=== PATIENT | female | born 1960 | race Caucasian/White ===

== ENCOUNTER 2017-03-29 14:53 | Emergency (ER) | payer MEDICAID ==
[~2017-03-29] VITALS: Ht 172.7 cm; Wt 73.0 kg
[~2017-03-29 14:53] MED LIST: ATEN50TA; BUTA-251; DIAZ5TAB4 PO; HYDR-3927; SERT-112 PO; TRAZ-132 PO
[2017-03-29] MEDS ORDERED: SODIUM CHLORIDE 0.9% 1,000 ML IV ONE (15:28)
[2017-03-29] MEDS ORDERED: KETOROLAC 30MG/ML VIAL IV STA (15:28)
[2017-03-29] MEDS ORDERED: LORAZEPAM 0.5MG TABLET PO ONE (15:30)
[2017-03-29 15:49] LABS: EOSINOPHILS % 2.1 % (0.0-5.0); HEMATOCRIT. 35.9 % (36.0-48.0); HEMOGLOBIN. 12.3 g/dL (12.0-16.0); LYMPHOCYTES % 24.9 % (20.0-50.0); MEAN CORPUSCULAR HEMOGLOBIN 31.3 pg (28.0-32.0); MEAN CORPUSCULAR VOLUME 91.5 fL (81.0-99.0); MEAN PLATELET VOLUME 6.8 fl (7.4-10.4); MONOCYTES % 9.9 % (2.0-8.0); NEUTROPHILS % 62.1 % (40.0-76.0); PLATELET 271 x1000/uL (130-400); RED BLOOD CELL COUNT 3.93 mill/uL (4.2-5.4); RED CELL DISTRIBUTION WIDTH 14.2 % (11.6-14.6)
[2017-03-29 15:51] LABS: PROTHROMBIN TIME 10.2 sec
[2017-03-29 15:53] LABS: CARBON DIOXIDE 27 mEq/L (21-32); CHLORIDE 104 mEq/L (98-107)
[2017-03-29 15:59] LABS: TROPONIN I < 0.02 ng/mL (0.00-0.04)
[2017-03-29] MEDS ORDERED: BUTALBITAL/ACETAMINOPHEN/CAFFEINE 50/325/40MG TABLET PO ONE (18:00)
[2017-03-29 18:04] VITALS: BP 134/83
== END 2017-03-29 20:47 | disposition home or self-care (01) ==
LOC: ER 16:56
DX: R07.89 Other chest pain (principal); I10 Essential (primary) hypertension; F41.9 Anxiety disorder, unspecified; Z90.710 Acquired absence of both cervix and uterus
CPT/HCPCS: 36415; 71010; 80053; 84484; 85025; 85610; 93005; 96361; 96374; 99285; J1885; J7030; Z7610

== ENCOUNTER 2017-06-13 14:18 | Emergency (ER) | payer MEDICAID, OTHER ==
[~2017-06-13] VITALS: Ht 172.7 cm; Wt 73.0 kg
[2017-06-13] MEDS ORDERED: KETOROLAC 60MG/2ML VIAL IM ONE (20:45)
[2017-06-13 21:20] VITALS: BP 169/97
== END 2017-06-14 01:15 | disposition home or self-care (01) ==
LOC: ER 14:18
DX: S83.92XA Sprain of unspecified site of left knee, initial encounter (principal); Y92.090 Kitchen in other non-institutional residence as the place of occurrence of the external cause; W01.0XXA Fall on same level from slipping, tripping and stumbling without subsequent striking against object, initial encounter; F41.9 Anxiety disorder, unspecified; M19.90 Unspecified osteoarthritis, unspecified site; Y93.G1 Activity, food preparation and clean up; I10 Essential (primary) hypertension; Z90.710 Acquired absence of both cervix and uterus; Z98.890 Other specified postprocedural states
CPT/HCPCS: 73562; 96372; 99284; J1885; L1830; Z7610

== ENCOUNTER 2017-06-26 08:59 | Inpatient (IN) | payer MEDICAID ==
[~2017-06-26] VITALS: Ht 172.7 cm; Wt 72.6 kg
[2017-06-26] MEDS ORDERED: NITROGLYCERIN OINT 1GM/INCH UDPKT TD STA (09:15)
[2017-06-26] MEDS ORDERED: ASPIRIN 81MG TABLET PO STA (09:15)
[2017-06-26] MEDS ORDERED: ONDANSETRON HCL 4MG/2ML VIAL IV ONE (09:15)
[2017-06-26] MEDS ORDERED: MORPHINE SULFATE 4 MG/ML CPJ (NOT FOR IM USE) IV ONE (09:15)
[2017-06-26 09:45] LABS: BASOPHILS % 1.1 % (0.0-2.0); EOSINOPHILS % 3.1 % (0.0-5.0); HEMATOCRIT. 34.6 % (36.0-48.0); HEMOGLOBIN. 11.8 g/dL (12.0-16.0); LYMPHOCYTES % 30.9 % (20.0-50.0); MEAN CORPUSCULAR HEMOGLOBIN 30.7 pg (28.0-32.0); MEAN CORPUSCULAR VOLUME 89.7 fL (81.0-99.0); MEAN PLATELET VOLUME 6.7 fl (7.4-10.4); MONOCYTES % 9.5 % (2.0-8.0); NEUTROPHILS % 55.4 % (40.0-76.0); PLATELET 236 x1000/uL (130-400); RED BLOOD CELL COUNT 3.85 mill/uL (4.2-5.4)
[2017-06-26 09:53] LABS: PARTIAL THROMBOPLASTIN TIME 26.1 sec (23.4-31.0); PROTHROMBIN TIME 10.1 sec (9.4-11.6)
[2017-06-26 10:01] LABS: CARBON DIOXIDE 29 mEq/L (21-32); CHLORIDE 108 mEq/L (98-107); TROPONIN I < 0.02 ng/mL (0.00-0.04)
[2017-06-26 11:30] VITALS: BP 116/76
[2017-06-26 12:00] VITALS: BP 116/76
[2017-06-26] MEDS ORDERED: GABA-531 PO (12:04)
[2017-06-26] MEDS ORDERED: FIORICET PO (12:06)
[2017-06-26] MEDS: SERTRALINE HCL 100MG TABLET PO SCH (12:15)
[2017-06-26] MEDS: HYDROCODONE/ACETAMINOPHEN 5/325MG TABLET PO PRN ×2 (12:34→19:56)
[2017-06-26] MEDS: CODEINE/BUTALBIT/ACETAMINOPHEN/CAFF 30/50/325/40MG CAPSULE PO PRN (15:10)
[2017-06-26 15:31] LABS: CREATINE KINASE 53 IU/L (26-192); CREATINE KINASE MB FRACTION 0.5 ng/mL (0.5-3.6); TROPONIN I < 0.02 ng/mL (0.00-0.04)
[2017-06-26 15:46] VITALS: BP 97/63
[2017-06-26] MEDS ORDERED: ATENOLOL 50 MG TABLET PO SCH (17:00)
[2017-06-26 17:05] VITALS: BP 119/78
[2017-06-26 20:00] VITALS: BP 127/73
[2017-06-26] MEDS: METOPROLOL TARTRATE 50MG TABLET PO SCH (21:00)
[2017-06-26] MEDS: DIAZEPAM 5 MG TABLET PO PRN (21:49)
[2017-06-27] VITALS: BP 121/88
[2017-06-27] MEDS: HYDROCODONE/ACETAMINOPHEN 5/325MG TABLET PO PRN ×2 (01:34→15:05)
[2017-06-27 02:41] LABS: *AMPHETAMINES SCREEN URINE NEGATIVE (NEGATIVE); *BARBITURATES SCREEN URINE PRESUMTIVE POSITIVE (NEGATIVE); *BENZODIAZEPINES SCREEN URINE PRESUMTIVE POSITIVE (NEGATIVE); *COCAINE SCREEN URINE NEGATIVE (NEGATIVE); CANNABINOID URINE SCREEN NEGATIVE (NEGATIVE); METHADONE URINE SCREEN NEGATIVE (NEGATIVE); OPIATES URINE SCREEN PRESUMTIVE POSITIVE (NEGATIVE); PHENCYCLIDINE URINE SCREEN NEGATIVE (NEGATIVE)
[2017-06-27 04:00] VITALS: BP 130/76
[2017-06-27 07:50] VITALS: BP 155/82
[2017-06-27] MEDS: SERTRALINE HCL 100MG TABLET PO SCH (08:34)
[2017-06-27] MEDS: DIAZEPAM 5 MG TABLET PO PRN ×2 (08:35→15:01)
[2017-06-27] MEDS: METOPROLOL TARTRATE 50MG TABLET PO SCH (08:35)
[2017-06-27] MEDS ORDERED: ASPIRIN 81MG TABLET PO SCH (09:00)
[2017-06-27] MEDS ORDERED: GABAPENTIN 300MG CAPSULE PO SCH (09:00)
[2017-06-27] MEDS: CODEINE/BUTALBIT/ACETAMINOPHEN/CAFF 30/50/325/40MG CAPSULE PO PRN ×2 (09:54→15:47)
[2017-06-27] MEDS ORDERED: TRIAMTERENE/HYDROCHLOROTHIAZID 75/50MG TABLET PO SCH (11:15)
[2017-06-27 12:00] VITALS: BP 128/71
[2017-06-27 12:41] LABS: CREATINE KINASE 46 IU/L (26-192); CREATINE KINASE MB FRACTION 0.6 ng/mL (0.5-3.6); TROPONIN I < 0.02 ng/mL (0.00-0.04)
[2017-06-27 15:59] VITALS: BP 130/77
[2017-06-27 16:02] VITALS: BP 130/77
== END 2017-06-27 17:59 | disposition home or self-care (01) | DRG 203 ==
LOC: ER 08:59 → 8WST 09:34 → EDBEDREQ 09:34 → ENRESERV 09:36 → CANRESERV 09:36 → ENRESERV 11:07
PROVIDERS: ADMIT Internal Medicine; ATTEND Internal Medicine
DX: M94.0 Chondrocostal junction syndrome [Tietze] (principal); I10 Essential (primary) hypertension; R00.1 Bradycardia, unspecified; F41.9 Anxiety disorder, unspecified; D64.9 Anemia, unspecified; G43.909 Migraine, unspecified, not intractable, without status migrainosus; T44.7X5A Adverse effect of beta-adrenoreceptor antagonists, initial encounter; Z82.49 Family history of ischemic heart disease and other diseases of the circulatory system; Z90.710 Acquired absence of both cervix and uterus; Z79.899 Other long term (current) drug therapy; Y92.89 Other specified places as the place of occurrence of the external cause
CPT/HCPCS: 36415; 71010; 76705; 80053; 80305; 82550; 82553; 83690; 83880; 84443; 84484; 85025; 85610; 85730; 93005; 93306; 93970; 96374; 96375; 99291; J2270; J2405

== ENCOUNTER 2017-09-22 12:37 | Emergency (ER) | payer MEDICAID ==
[~2017-09-22] VITALS: Ht 172.7 cm; Wt 73.0 kg
[~2017-09-22 12:37] MED LIST changes: +FIORICET PO; +GABA-531 PO
[2017-09-22] MEDS ORDERED: LORAZEPAM 0.5MG TABLET PO ONE (14:00)
[2017-09-22] MEDS ORDERED: BUTALBITAL/ACETAMINOPHEN/CAFFEINE 50/325/40MG TABLET PO ONE (14:00)
[2017-09-22 14:09] LABS: BASOPHILS % 1.2 % (0.0-2.0); EOSINOPHILS % 2.4 % (0.0-5.0); HEMATOCRIT. 36.8 % (36.0-48.0); HEMOGLOBIN. 12.4 g/dL (12.0-16.0); LYMPHOCYTES % 33.3 % (20.0-50.0); MEAN CORPUSCULAR HEMOGLOBIN 30.4 pg (28.0-32.0); MEAN CORPUSCULAR VOLUME 90.1 fL (81.0-99.0); MEAN PLATELET VOLUME 6.9 fl (7.4-10.4); NEUTROPHILS % 54.1 % (40.0-76.0); PLATELET 233 x1000/uL (130-400); RED BLOOD CELL COUNT 4.08 mill/uL (4.2-5.4); RED CELL DISTRIBUTION WIDTH 13.6 % (11.6-14.6)
[2017-09-22 14:13] LABS: PROTHROMBIN TIME 10.1 sec (9.4-11.6)
[2017-09-22 14:21] LABS: CARBON DIOXIDE 27 mEq/L (21-32); CHLORIDE 106 mEq/L (98-107); TROPONIN I < 0.02 ng/mL (0.00-0.04)
[2017-09-22 15:19] VITALS: BP 127/83
== END 2017-09-22 15:31 | disposition home or self-care (01) ==
LOC: ER 13:26
DX: R07.9 Chest pain, unspecified (principal); I10 Essential (primary) hypertension; R51 Headache; F41.9 Anxiety disorder, unspecified; Z90.710 Acquired absence of both cervix and uterus; Z79.899 Other long term (current) drug therapy
CPT/HCPCS: 36415; 71010; 80053; 84484; 85025; 85610; 99285

== ENCOUNTER 2017-11-25 14:52 | Emergency (ER) | payer MEDICAID ==
[~2017-11-25] VITALS: Ht 172.7 cm; Wt 73.0 kg
[2017-11-25 17:57] LABS: BASOPHILS % 0.7 % (0.0-2.0); EOSINOPHILS % 2.2 % (0.0-5.0); HEMATOCRIT. 34.4 % (36.0-48.0); HEMOGLOBIN. 11.5 g/dL (12.0-16.0); LYMPHOCYTES % 29.3 % (20.0-50.0); MEAN CORPUSCULAR VOLUME 89.6 fL (81.0-99.0); MEAN PLATELET VOLUME 6.9 fl (7.4-10.4); MONOCYTES % 8.3 % (2.0-8.0); NEUTROPHILS % 59.5 % (40.0-76.0); PLATELET 238 x1000/uL (130-400); RED BLOOD CELL COUNT 3.84 mill/uL (4.2-5.4); RED CELL DISTRIBUTION WIDTH 14.3 % (11.6-14.6)
[2017-11-25 17:59] LABS: PROTHROMBIN TIME 10.2 sec (9.4-11.6)
[2017-11-25 18:11] LABS: CARBON DIOXIDE 30 mEq/L (21-32); CHLORIDE 105 mEq/L (98-107); TROPONIN I < 0.02 ng/mL (0.00-0.04)
[2017-11-25 19:30] VITALS: BP 100/64
== END 2017-11-25 20:00 | disposition home or self-care (01) ==
LOC: ER 15:13
DX: G89.18 Other acute postprocedural pain (principal); R07.89 Other chest pain; R21 Rash and other nonspecific skin eruption; R51 Headache; I10 Essential (primary) hypertension; Z98.890 Other specified postprocedural states; Z87.891 Personal history of nicotine dependence; Z90.710 Acquired absence of both cervix and uterus; Z91.040 Latex allergy status
CPT/HCPCS: 36415; 71045; 80053; 84484; 85025; 85610; 93005; 99285

== ENCOUNTER 2018-05-05 13:46 | Emergency (ER) | payer MEDICAID ==
[~2018-05-05] VITALS: Ht 172.7 cm; Wt 78.0 kg
[2018-05-05] MEDS ORDERED: BUTALBITAL/ACETAMINOPHEN/CAFFEINE 50/325/40MG TABLET PO ONE (15:00)
[2018-05-05 15:05] LABS: CLARITY URINE CLEAR (CLEAR); COLOR URINE YELLOW (YELLOW); KETONES URINE NEGATIVE (NEGATIVE); LEUKOCYTE ESTERASE URINE NEGATIVE (NEGATIVE); NITRITE URINE NEGATIVE (NEGATIVE); OCCULT BLOOD URINE NEGATIVE (NEGATIVE); PROTEIN URINE NEGATIVE (NEGATIVE); SPECIFIC GRAVITY URINE 1.003 (1.005-1.030); UROBILINOGEN URINE 0.2 E.U./dL (0.2-1.0)
[2018-05-05 15:06] LABS: HEMATOCRIT. 36.5 % (36.0-48.0); HEMOGLOBIN. 12.4 g/dL (12.0-16.0); LYMPHOCYTES % 29.6 % (20.0-50.0); MEAN CORPUSCULAR HEMOGLOBIN 31.3 pg (28.0-32.0); MEAN CORPUSCULAR VOLUME 92.6 fL (81.0-99.0); MEAN PLATELET VOLUME 7.1 fl (7.4-10.4); MONOCYTES % 8.9 % (2.0-8.0); NEUTROPHILS % 58.5 % (40.0-76.0); PLATELET 254 x1000/uL (130-400); RED BLOOD CELL COUNT 3.94 mill/uL (4.2-5.4); RED CELL DISTRIBUTION WIDTH 14.8 % (11.6-14.6)
[2018-05-05 15:11] LABS: CHLORIDE 105 mEq/L (98-107)
[2018-05-05] MEDS ORDERED: DIAZEPAM 2 MG TABLET PO ONE ×2 (15:30→16:00)
[2018-05-05 16:45] VITALS: BP 130/75
== END 2018-05-05 16:46 | disposition home or self-care (01) ==
LOC: ER 15:31
DX: F41.9 Anxiety disorder, unspecified (principal); I10 Essential (primary) hypertension; R07.9 Chest pain, unspecified; R51 Headache
CPT/HCPCS: 36415; 71045; 80053; 81003; 84484; 85025; 93005; 99285

== ENCOUNTER 2018-08-30 15:52 | Emergency (ER) | payer MEDICAID ==
[~2018-08-30] VITALS: Ht 172.7 cm; Wt 75.0 kg
[~2018-08-30 15:52] MED LIST changes: +ASPI-1158 PO; -ATEN50TA; -BUTA-251; +BUTA1CAP45 PO; -FIORICET PO; -HYDR-3927; -SERT-112 PO; +SERT50TA12 PO; -TRAZ-132 PO; +TRAZ-213 PO
[2018-08-30] MEDS ORDERED: KETOROLAC 30MG/ML VIAL IV STA (16:25)
[2018-08-30] MEDS ORDERED: CEFTRIAXONE 1 G PREMIX 50 ML IV ONE (16:30)
[2018-08-30] MEDS ORDERED: BUTALBITAL/ACETAMINOPHEN/CAFFEINE 50/325/40MG TABLET PO ONE (16:30)
[2018-08-30] MEDS ORDERED: DIAZEPAM 5 MG TABLET PO ONE (16:30)
[2018-08-30] MEDS ORDERED: ONDANSETRON HCL 4MG/2ML INJ IV ONE (17:00)
[2018-08-30 17:32] LABS: BASOPHILS % 1.2 % (0.0-2.0); EOSINOPHILS % 1.9 % (0.0-5.0); HEMATOCRIT. 40.7 % (36.0-48.0); HEMOGLOBIN. 13.7 g/dL (12.0-16.0); LYMPHOCYTES % 21.9 % (20.0-50.0); MEAN CORPUSCULAR HEMOGLOBIN 31.7 pg (28.0-32.0); MEAN PLATELET VOLUME 7.1 fl (7.4-10.4); MONOCYTES % 7.5 % (2.0-8.0); NEUTROPHILS % 67.5 % (40.0-76.0); PLATELET 328 x1000/uL (130-400); RED BLOOD CELL COUNT 4.33 mill/uL (4.2-5.4); RED CELL DISTRIBUTION WIDTH 14.7 % (11.6-14.6)
[2018-08-30 17:38] LABS: CHLORIDE 100 mEq/L (98-107)
[2018-08-30 18:27] LABS: CLARITY URINE CLEAR (CLEAR); COLOR URINE YELLOW (YELLOW); KETONES URINE NEGATIVE (NEGATIVE); LEUKOCYTE ESTERASE URINE 1+ (NEGATIVE); NITRITE URINE NEGATIVE (NEGATIVE); OCCULT BLOOD URINE NEGATIVE (NEGATIVE); PROTEIN URINE NEGATIVE (NEGATIVE); SPECIFIC GRAVITY URINE 1.005 (1.005-1.030); UROBILINOGEN URINE 0.2 E.U./dL (0.2-1.0)
[2018-08-30 19:01] VITALS: BP 163/73
== END 2018-08-30 19:30 | disposition home or self-care (01) ==
LOC: ER 18:31
DX: R51 Headache (principal); R07.9 Chest pain, unspecified; N39.0 Urinary tract infection, site not specified; F41.9 Anxiety disorder, unspecified; I10 Essential (primary) hypertension; R03.0 Elevated blood-pressure reading, without diagnosis of hypertension; Z76.0 Encounter for issue of repeat prescription; Z79.82 Long term (current) use of aspirin; Z91.040 Latex allergy status; Z90.710 Acquired absence of both cervix and uterus
CPT/HCPCS: 36415; 71045; 80053; 81003; 83690; 83880; 84484; 85025; 87077; 87086; 93005; 96365; 96375; 99285; J0696; J1885; J2405

== ENCOUNTER 2018-12-12 14:35 | Inpatient (IN) | payer MEDICAID ==
[~2018-12-12] VITALS: Ht 172.7 cm; Wt 71.9 kg
[2018-12-12] MEDS ORDERED: LORAZEPAM 1MG TABLET PO ONE (23:15)
[2018-12-13] MEDS ORDERED: MORPHINE SULFATE 4 MG/ML CPJ (NOT FOR IM USE) IV STA (00:02)
[2018-12-13 00:12] LABS: BASOPHILS % 0.9 % (0.0-2.0); EOSINOPHILS % 1.7 % (0.0-5.0); HEMOGLOBIN. 13.4 g/dL (12.0-16.0); MEAN CORPUSCULAR HEMOGLOBIN 31.6 pg (28.0-32.0); MEAN CORPUSCULAR VOLUME 94.4 fL (81.0-99.0); MEAN PLATELET VOLUME 7.3 fl (7.4-10.4); MONOCYTES % 8.9 % (2.0-8.0); NEUTROPHILS % 50.5 % (40.0-76.0); PLATELET 277 x1000/uL (130-400); RED BLOOD CELL COUNT 4.24 mill/uL (4.2-5.4); RED CELL DISTRIBUTION WIDTH 14.1 % (11.6-14.6)
[2018-12-13 00:16] LABS: CHLORIDE 103 mEq/L (98-107)
[2018-12-13] MEDS ORDERED: LORAZEPAM 1MG TABLET PO ONE (02:30)
[2018-12-13] MEDS ORDERED: ACETAMINOPHEN 500MG TABLET PO ONE (06:00)
[2018-12-13] MEDS ORDERED: DOCUSATE SODIUM 100MG CAPSULE PO PRN (08:00)
[2018-12-13] MEDS ORDERED: ONDANSETRON HCL 4MG/2ML INJ IV PRN (08:00)
[2018-12-13] MEDS ORDERED: CLONIDINE 0.1MG TABLET PO PRN (08:00)
[2018-12-13] MEDS ORDERED: ACETAMINOPHEN 325MG TABLET PO PRN (08:00)
[2018-12-13] MEDS ORDERED: IPRATROPIUM/ALBUTEROL 0.5-3(2.5)MG/3ML NEB INH PRN (08:00)
[2018-12-13] MEDS ORDERED: GUAIFENESIN 200MG/10ML SUGAR FREE UDC PO PRN (08:00)
[2018-12-13] MEDS ORDERED: MAGNESIUM/ALUMINUM HYDROXIDE/SIMETHICONE 30ML UDC PO PRN (08:00)
[2018-12-13] MEDS: DIAZEPAM 5 MG TABLET PO SCH ×2 (08:28→20:07)
[2018-12-13] MEDS: HYDROCODONE/ACETAMINOPHEN 5/325MG TABLET PO PRN ×2 (10:21→22:57)
[2018-12-13] MEDS ORDERED: MORPHINE SULFATE 4 MG/ML CPJ (NOT FOR IM USE) IV PRN (15:30)
[2018-12-13] MEDS: ATENOLOL 100 MG TABLET PO SCH ×2 (15:31→21:00)
[2018-12-13 16:43] LABS: CREATINE KINASE 64 IU/L (26-192)
[2018-12-13 19:28] LABS: CLARITY URINE CLOUDY (CLEAR); COLOR URINE YELLOW (YELLOW); KETONES URINE 1+ (NEGATIVE); LEUKOCYTE ESTERASE URINE 3+ (NEGATIVE); NITRITE URINE POSITIVE (NEGATIVE); OCCULT BLOOD URINE 1+ (NEGATIVE); PROTEIN URINE NEGATIVE (NEGATIVE); SPECIFIC GRAVITY URINE 1.007 (1.005-1.030); UROBILINOGEN URINE 0.2 E.U./dL (0.2-1.0)
[2018-12-13 21:15] VITALS: BP 147/74
[2018-12-13] MEDS ORDERED: ENOXAPARIN 40MG/0.4ML SYR SUBCUT SCH (21:30)
[2018-12-13] MEDS: DIPHENHYDRAMINE 50MG/ML VIAL IV PRN (21:58)
[2018-12-13 23:48] VITALS: BP 147/74
[2018-12-14] VITALS: BP 123/70
[2018-12-14] MEDS ORDERED: ATEN100T PO (00:24)
[2018-12-14 01:24] LABS: CREATINE KINASE 103 IU/L (26-192)
[2018-12-14 04:00] VITALS: BP 164/86
[2018-12-14] MEDS: DIPHENHYDRAMINE 50MG/ML VIAL IV PRN ×3 (04:19→13:45)
[2018-12-14 06:16] LABS: BASOPHILS % 1.2 % (0.0-2.0); EOSINOPHILS % 1.7 % (0.0-5.0); HEMATOCRIT. 36.6 % (36.0-48.0); HEMOGLOBIN. 12.4 g/dL (12.0-16.0); LYMPHOCYTES % 29.4 % (20.0-50.0); MEAN CORPUSCULAR VOLUME 94.3 fL (81.0-99.0); MONOCYTES % 9.1 % (2.0-8.0); NEUTROPHILS % 58.6 % (40.0-76.0); PLATELET 220 x1000/uL (130-400); RED BLOOD CELL COUNT 3.88 mill/uL (4.2-5.4); RED CELL DISTRIBUTION WIDTH 13.6 % (11.6-14.6)
[2018-12-14 08:00] VITALS: BP 134/72
[2018-12-14 08:04] LABS: CHLORIDE 106 mEq/L (98-107)
[2018-12-14] MEDS: HYDROCODONE/ACETAMINOPHEN 5/325MG TABLET PO PRN ×2 (08:06→13:44)
[2018-12-14 08:15] LABS: LDL CHOLESTEROL 115 mg/dL (5-100)
[2018-12-14 08:16] LABS: HDL CHOLESTEROL 83 mg/dL (40-59)
[2018-12-14] MEDS: DIAZEPAM 5 MG TABLET PO SCH (08:49)
[2018-12-14] MEDS: ATENOLOL 100 MG TABLET PO SCH (08:49)
[2018-12-14] MEDS ORDERED: CEFTRIAXONE 1 G PREMIX 50 ML IV SCH (11:00)
[2018-12-14 12:00] VITALS: BP 131/75
[2018-12-14] MEDS ORDERED: DIAZ5TAB4 PO (12:53)
[2018-12-14] MEDS ORDERED: SULF1TAB47 MT (12:53)
[2018-12-14] MEDS ORDERED: ATOR10TA MT (12:53)
[2018-12-14 13:15] VITALS: BP 136/70
[2018-12-14 13:44] VITALS: BP 136/70
== END 2018-12-14 15:30 | disposition home or self-care (01) | DRG 463 ==
LOC: ER 14:35 → 5WST 12-13 02:21 → EDBEDREQ 12-13 02:26 → EDBEDREQTM 12-13 02:26 → ENRESERV 12-13 19:02
PROVIDERS: ADMIT Internal Medicine; ATTEND Internal Medicine
DX: N39.0 Urinary tract infection, site not specified (principal); E78.00 Pure hypercholesterolemia, unspecified; R07.89 Other chest pain; E78.5 Hyperlipidemia, unspecified; F41.0 Panic disorder [episodic paroxysmal anxiety]; I10 Essential (primary) hypertension; Z87.891 Personal history of nicotine dependence; Z90.711 Acquired absence of uterus with remaining cervical stump; Z91.040 Latex allergy status; Z91.09 Other allergy status, other than to drugs and biological substances; Z90.710 Acquired absence of both cervix and uterus; R00.1 Bradycardia, unspecified
CPT/HCPCS: 36415; 71045; 80061; 82550; 83036; 83735; 83880; 84100; 84443; 84484; 85379; 87077; 87186; 93005; 93306; 93970; 96374; 96375; 99285; J0696; J1200; J1650; J2270

== ENCOUNTER 2019-07-17 12:27 | Emergency (ER) | payer MEDICAID ==
[~2019-07-17] VITALS: Ht 172.7 cm; Wt 63.0 kg
[~2019-07-17 12:27] MED LIST changes: +ATEN100T PO; +ATOR10TA MT; +SULF1TAB47 MT
[2019-07-17] MEDS ORDERED: BUTALBITAL/ACETAMINOPHEN/CAFFEINE 50/325/40MG TABLET PO ONE (13:45)
[2019-07-17] MEDS ORDERED: LORAZEPAM 1MG TABLET PO ONE (13:45)
[2019-07-17] MEDS ORDERED: NITROGLYCERIN 0.4MG TABLET SL SL PRN (13:45)
[2019-07-17] MEDS ORDERED: ASPIRIN 81MG TABLET PO ONE (13:45)
[2019-07-17 14:03] LABS: BASOPHILS % 1.6 % (0.0-2.0); HEMATOCRIT. 37.1 % (36.0-48.0); HEMOGLOBIN. 12.7 g/dL (12.0-16.0); LYMPHOCYTES % 28.8 % (20.0-50.0); MEAN CORPUSCULAR HEMOGLOBIN 31.7 pg (28.0-32.0); MEAN CORPUSCULAR VOLUME 92.9 fL (81.0-99.0); MEAN PLATELET VOLUME 7.4 fl (7.4-10.4); MONOCYTES % 11.1 % (2.0-8.0); NEUTROPHILS % 55.5 % (40.0-76.0); PLATELET 242 x1000/uL (130-400); RED CELL DISTRIBUTION WIDTH 13.7 % (11.6-14.6)
[2019-07-17 14:05] LABS: CHLORIDE 104 mEq/L (98-107)
[2019-07-17 15:36] VITALS: BP 123/72
== END 2019-07-17 15:41 | disposition home or self-care (01) ==
LOC: ER 12:27
DX: R51 Headache (principal); R07.9 Chest pain, unspecified; F41.9 Anxiety disorder, unspecified; I10 Essential (primary) hypertension; Z96.649 Presence of unspecified artificial hip joint; Z90.710 Acquired absence of both cervix and uterus; Z98.890 Other specified postprocedural states; Z79.899 Other long term (current) drug therapy; Z91.040 Latex allergy status
CPT/HCPCS: 36415; 71045; 80053; 84484; 85025; 93005; 99284; Z7610

== ENCOUNTER 2019-08-15 14:27 | Inpatient (IN) | payer MEDICAID ==
[~2019-08-15] VITALS: Ht 172.7 cm; Wt 65.8 kg
[2019-08-15] MEDS ORDERED: ASPIRIN 81MG TABLET PO ONE (17:15)
[2019-08-15] MEDS ORDERED: NITROGLYCERIN 0.4MG TABLET SL SL PRN (17:15)
[2019-08-15] MEDS ORDERED: BUTALBITAL/ACETAMINOPHEN/CAFFEINE 50/325/40MG TABLET PO ONE ×2 (17:15→18:00)
[2019-08-15 17:48] LABS: BASOPHILS % 0.7 % (0.0-2.0); CHLORIDE 104 mEq/L (98-107); EOSINOPHILS % 2.2 % (0.0-5.0); HEMATOCRIT. 37.3 % (36.0-48.0); HEMOGLOBIN. 12.5 g/dL (12.0-16.0); LYMPHOCYTES % 29.7 % (20.0-50.0); MEAN CORPUSCULAR HEMOGLOBIN 31.2 pg (28.0-32.0); MEAN CORPUSCULAR VOLUME 93.2 fL (81.0-99.0); MONOCYTES % 10.8 % (2.0-8.0); NEUTROPHILS % 56.6 % (40.0-76.0); PLATELET 240 x1000/uL (130-400); RED BLOOD CELL COUNT 4.01 mill/uL (4.2-5.4); RED CELL DISTRIBUTION WIDTH 14.4 % (11.6-14.6)
[2019-08-15 17:59] LABS: D-DIMER < 0.19 mg/L FEU (<0.50); PARTIAL THROMBOPLASTIN TIME 26.3 sec (23.4-31.0); PROTHROMBIN TIME 10.1 sec (9.6-11.0)
[2019-08-15] MEDS ORDERED: LORAZEPAM 0.5MG TABLET PO ONE (18:15)
[2019-08-15 23:00] VITALS: BP 164/93
[2019-08-16] VITALS: BP 164/93
[2019-08-16] MEDS ORDERED: LORAZEPAM 1MG TABLET PO PRN (01:00)
[2019-08-16] MEDS: MORPHINE SULFATE 2 MG/ML CPJ (NOT FOR IM USE) IV PRN ×4 (01:40→20:39)
[2019-08-16] MEDS: METOPROLOL TARTRATE 50MG TABLET PO SCH ×2 (02:00→09:00)
[2019-08-16 04:00] VITALS: BP 129/71
[2019-08-16] MEDS: NITROGLYCERIN OINT 1GM/INCH UDPKT TD SCH ×3 (06:03→22:00)
[2019-08-16 06:55] LABS: BASOPHILS % 0.9 % (0.0-2.0); EOSINOPHILS % 2.4 % (0.0-5.0); HEMATOCRIT. 35.9 % (36.0-48.0); HEMOGLOBIN. 12.3 g/dL (12.0-16.0); LYMPHOCYTES % 42.7 % (20.0-50.0); MEAN CORPUSCULAR VOLUME 92.9 fL (81.0-99.0); MEAN PLATELET VOLUME 7.2 fl (7.4-10.4); MONOCYTES % 11.7 % (2.0-8.0); NEUTROPHILS % 42.3 % (40.0-76.0); PLATELET 207 x1000/uL (130-400); RED BLOOD CELL COUNT 3.86 mill/uL (4.2-5.4); RED CELL DISTRIBUTION WIDTH 14.7 % (11.6-14.6)
[2019-08-16 07:04] LABS: CHLORIDE 107 mEq/L (98-107)
[2019-08-16 07:27] LABS: LDL CHOLESTEROL 70 mg/dL (5-100)
[2019-08-16 07:33] LABS: HDL CHOLESTEROL 112 mg/dL (40-59)
[2019-08-16 08:00] VITALS: BP 149/83
[2019-08-16] MEDS: ASPIRIN 325MG EC TABLET PO SCH ×2 (09:00→10:31)
[2019-08-16] MEDS ORDERED: POTASSIUM CHLORIDE 20MEQ TABLET SR PO SCH (09:45)
[2019-08-16] MEDS: DIAZEPAM 5 MG TABLET PO PRN ×3 (10:27→22:59)
[2019-08-16] MEDS: BUTALBITAL/ACETAMINOPHEN/CAFFEINE 50/325/40MG TABLET PO PRN ×3 (10:27→21:37)
[2019-08-16 12:00] VITALS: BP 131/74
[2019-08-16] MEDS ORDERED: INFLUENZA VIRUS VACCINE(AFLURIA) 0.5ML SYR IM ONE (12:00)
[2019-08-16] MEDS ORDERED: DIAZ5TAB4 PO (12:55)
[2019-08-16] MEDS ORDERED: BUTA1CAP45 PO (12:55)
[2019-08-16] MEDS ORDERED: CLONIDINE 0.1MG TABLET PO PRN (13:00)
[2019-08-16 16:00] VITALS: BP 127/88
[2019-08-16 16:33] LABS: *BARBITURATES SCREEN URINE PRESUMTIVE POSITIVE (NEGATIVE); *BENZODIAZEPINES SCREEN URINE PRESUMTIVE POSITIVE (NEGATIVE); *COCAINE SCREEN URINE NEGATIVE (NEGATIVE); METHADONE URINE SCREEN NEGATIVE (NEGATIVE); OPIATES URINE SCREEN PRESUMTIVE POSITIVE (NEGATIVE)
[2019-08-16 16:34] LABS: *AMPHETAMINES SCREEN URINE NEGATIVE (NEGATIVE); CANNABINOID URINE SCREEN NEGATIVE (NEGATIVE); PHENCYCLIDINE URINE SCREEN NEGATIVE (NEGATIVE)
[2019-08-16 20:00] VITALS: BP 145/83
[2019-08-17] VITALS: BP 141/85
[2019-08-17 04:00] VITALS: BP 128/83
[2019-08-17] MEDS: MORPHINE SULFATE 2 MG/ML CPJ (NOT FOR IM USE) IV PRN ×2 (05:20→12:04)
[2019-08-17] MEDS: DIAZEPAM 5 MG TABLET PO PRN ×2 (05:21→12:04)
[2019-08-17] MEDS: NITROGLYCERIN OINT 1GM/INCH UDPKT TD SCH (06:00)
[2019-08-17] MEDS: ASPIRIN 325MG EC TABLET PO SCH (07:47)
[2019-08-17] MEDS: BUTALBITAL/ACETAMINOPHEN/CAFFEINE 50/325/40MG TABLET PO PRN ×2 (07:47→14:20)
[2019-08-17 08:00] VITALS: BP 132/78
[2019-08-17] MEDS ORDERED: DIPHENHYDRAMINE 50MG CAPSULE PO PRN (10:00)
[2019-08-17 12:00] VITALS: BP 153/85
[2019-08-17 13:41] VITALS: BP 133/85
[2019-08-17 14:20] VITALS: BP 133/85
== END 2019-08-17 16:35 | disposition home or self-care (01) | DRG 203 ==
LOC: ER 14:27 → 8WST 19:02 → ENRESERV 22:05 → 8WST 23:34
PROVIDERS: ADMIT Internal Medicine; ATTEND Internal Medicine
DX: R07.89 Other chest pain (principal); E78.5 Hyperlipidemia, unspecified; F41.9 Anxiety disorder, unspecified; F41.0 Panic disorder [episodic paroxysmal anxiety]; I10 Essential (primary) hypertension; F32.9 Major depressive disorder, single episode, unspecified; G43.909 Migraine, unspecified, not intractable, without status migrainosus; Z90.710 Acquired absence of both cervix and uterus; Z91.040 Latex allergy status; Z91.09 Other allergy status, other than to drugs and biological substances
CPT/HCPCS: 36415; 71045; 80061; 80305; 83880; 84484; 85379; 93005; 93306; 99285; J2270; Q0163

== ENCOUNTER 2019-11-06 13:53 | Emergency (ER) | payer MEDICAID ==
[~2019-11-06] VITALS: Ht 172.7 cm; Wt 60.0 kg
[~2019-11-06 13:53] MED LIST changes: -SULF1TAB47 MT; -TRAZ-213 PO; +TRAZ-252 PO
[2019-11-06] MEDS ORDERED: HYDROCODONE/ACETAMINOPHEN 5/325MG TABLET PO ONE (17:00)
[2019-11-06] MEDS ORDERED: BUTALBITAL/ACETAMINOPHEN/CAFFEINE 50/325/40MG TABLET PO ONE (17:00)
[2019-11-06 18:07] VITALS: BP 141/75
== END 2019-11-06 18:10 | disposition home or self-care (01) ==
LOC: ER 13:53
DX: S22.32XA Fracture of one rib, left side, initial encounter for closed fracture (principal); G43.909 Migraine, unspecified, not intractable, without status migrainosus; I10 Essential (primary) hypertension; Z91.040 Latex allergy status; Z79.899 Other long term (current) drug therapy; S27.9XXA Injury of unspecified intrathoracic organ, initial encounter; W18.11XA Fall from or off toilet without subsequent striking against object, initial encounter; Y93.E1 Activity, personal bathing and showering; Y92.89 Other specified places as the place of occurrence of the external cause; Y99.8 Other external cause status
CPT/HCPCS: 71101; 99283

== ENCOUNTER 2020-04-10 15:12 | Emergency (ER) | payer MEDICAID ==
[~2020-04-10] VITALS: Ht 172.7 cm; Wt 57.0 kg
[2020-04-10] MEDS ORDERED: IBUPROFEN 600MG TABLET PO STA (19:37)
[2020-04-10] MEDS ORDERED: BUTALBITAL/ACETAMINOPHEN/CAFFEINE 50/325/40MG TABLET PO ONE (20:00)
[2020-04-10] MEDS ORDERED: LORAZEPAM 0.5MG TABLET PO ONE (20:00)
[2020-04-10 20:24] LABS: BASOPHILS % 0.8 % (0.0-2.0); EOSINOPHILS % 3.3 % (0.0-5.0); HEMATOCRIT. 37.2 % (36.0-48.0); HEMOGLOBIN. 12.9 g/dL (12.0-16.0); LYMPHOCYTES % 34.4 % (20.0-50.0); MEAN CORPUSCULAR HEMOGLOBIN 32.5 pg (28.0-32.0); MEAN CORPUSCULAR VOLUME 93.8 fL (81.0-99.0); MEAN PLATELET VOLUME 6.9 fl (7.4-10.4); MONOCYTES % 9.8 % (2.0-8.0); NEUTROPHILS % 51.7 % (40.0-76.0); PLATELET 240 x1000/uL (130-400); RED BLOOD CELL COUNT 3.97 mill/uL (4.2-5.4); RED CELL DISTRIBUTION WIDTH 14.9 % (11.6-14.6)
[2020-04-10 20:25] LABS: CHLORIDE 103 mEq/L (98-107)
[2020-04-10 21:42] VITALS: BP 144/81
== END 2020-04-10 21:48 | disposition home or self-care (01) ==
LOC: ER 15:12
DX: R07.9 Chest pain, unspecified (principal); I10 Essential (primary) hypertension; G43.909 Migraine, unspecified, not intractable, without status migrainosus; F41.9 Anxiety disorder, unspecified; Z90.710 Acquired absence of both cervix and uterus; Z98.890 Other specified postprocedural states; Z91.040 Latex allergy status; Z79.82 Long term (current) use of aspirin
CPT/HCPCS: 36415; 71045; 80053; 84484; 85025; 93005; 99285

== ENCOUNTER 2020-06-04 14:55 | Emergency (ER) | payer MEDICAID ==
[~2020-06-04] VITALS: Ht 172.7 cm; Wt 57.0 kg
[2020-06-04 15:26] VITALS: BP 144/84
[2020-06-04] MEDS ORDERED: DIAZEPAM 5 MG TABLET PO ONE (16:00)
[2020-06-04] MEDS ORDERED: BUTALBITAL/ACETAMINOPHEN/CAFFEINE 50/325/40MG TABLET PO ONE (16:00)
[2020-06-04] MEDS ORDERED: ONDANSETRON 4MG ODT PO ONE (16:00)
== END 2020-06-04 17:10 | disposition home or self-care (01) ==
LOC: ER 14:55
DX: R51 Headache (principal); I10 Essential (primary) hypertension; F41.9 Anxiety disorder, unspecified; W22.09XA Striking against other stationary object, initial encounter; Y93.01 Activity, walking, marching and hiking; Y92.9 Unspecified place or not applicable; Z79.82 Long term (current) use of aspirin; Z90.710 Acquired absence of both cervix and uterus; Z91.040 Latex allergy status; Z98.890 Other specified postprocedural states
CPT/HCPCS: 70450; 99284; Q0162

== ENCOUNTER 2021-12-16 12:37 | Emergency (ER) | payer MEDICAID, OTHER ==
[~2021-12-16] VITALS: Ht 167.6 cm; Wt 68.0 kg
[~2021-12-16 12:37] MED LIST changes: -ASPI-1158 PO; +ASPI-1406 PO; -GABA-531 PO; +GABA-532 PO; +SERT-422 PO; -SERT50TA12 PO
[2021-12-16] MEDS ORDERED: OXYCODONE HCL/ACETAMINOPHEN 5/325MG TABLET PO ONE ×2 (13:00→15:30)
[2021-12-16] MEDS ORDERED: IBUP-2028 PO (14:27)
[2021-12-16] MEDS ORDERED: OXYC-100 PO (15:07)
[2021-12-16 15:38] VITALS: BP 135/65
== END 2021-12-16 15:49 | disposition home or self-care (01) ==
LOC: ER 12:37
DX: S30.0XXA Contusion of lower back and pelvis, initial encounter (principal); S92.341A Displaced fracture of fourth metatarsal bone, right foot, initial encounter for closed fracture; I10 Essential (primary) hypertension; F41.9 Anxiety disorder, unspecified; Y08.89XA Assault by other specified means, initial encounter; Y93.9 Activity, unspecified; Z79.82 Long term (current) use of aspirin; Z90.710 Acquired absence of both cervix and uterus; Z91.040 Latex allergy status
CPT/HCPCS: 70450; 72125; 72220; 73630; 99284; Z7610